=== PATIENT | female | born 2000 | race Caucasian/White ===

== ENCOUNTER 2024-08-04 19:39 | Emergency (ER) | payer SELFPAY ==
[~2024-08-04] VITALS: Ht 170.2 cm; Wt 60.2 kg
[2024-08-04 19:49] VITALS: BP 138/102; PULSE 133; O2SAT 99
--- NOTE | 2024-08-04 21:09 | Physician Documentation ---
History of Present Illness ~ Chief Complaint: Rash Stated Complaint: MRSA Time Seen by MD: 20:20 HPI Patient is seen today with complaints of skin rash that is been present for a while. Patient states he has even taken oral antibiotics for without any significant improvement. Patient states the lesions are very itchy and she does pick at them. Patient also complains of some joint pain in her hips but denies any injury. Patient has no new or other concern or complaint at this time. Medication Reconciliation Allergies: Coded Allergies: amoxicillin (Verified Allergy, Intermediate, rashes, 08/04/24) Scheduled Mupirocin* (Bactroban*), 1 APPLIC TOP Q12H Review of Systems Constitutional: Denies: chills, fever, weakness Eyes: Denies: pain, blurred vision ENT: Denies: ear pain, nose pain, throat pain, mouth pain Respiratory: Denies: cough, shortness of breath Cardiovascular: Denies: chest pain, palpitations Gastrointestinal: Denies: abdominal pain, nausea, vomiting Genitourinary: Denies: burning, dysuria Female Genitalia: Denies: vaginal discharge, pelvic pain Neurological: Denies: headache, dizziness Musculoskeletal: Denies: pain, swelling Integumentary: Denies: rash, lesions Allergic/Immunologic: Denies: hives, itching Hematologic/Lymphatic: Denies: no symptoms reported Psychiatric: Denies: depression, anxiety Physical Exam Vital Signs: Temperature: 98.3, Source: Oral, Heart Rate: 133, Respiratory Rate: 24, BP: 138/102, Pulse Oximetry: 99, Weight: 60.200 Physical Exam General: Awake and Alert, no acute distress. HEENT: Conjunctiva pink, Sclera clear, Mucus Membranes moist. Neck: Supple without masses and tenderness. Resp: Unlabored. Lungs clear to auscultation bilaterally. Heart: Regular Rate and rhythm, normal S1 and S2 without murmur, rub or gallop. Abdomen: Soft and non tender no organomegaly Musculoskeletal: Patient has full range of motion of spine in all planes of motion. Patient has decreased range of motion of right hip due to pain. Patient is neurovascularly intact distally. Motor function intact distally. Extremities: No cyanosis,clubbing or edema. 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 They are present on her left forearm and left upper arm as well as right arm. I do not appreciate any significant lesions on her back or out of reach from her finger nails or of her lower extremities. Progress Results/Orders Results/Orders Vital Signs 08/04/24 19:49 Temp 98.3 Pulse 133 Resp 24 B/P (MAP) 138/102 Pulse Ox 99 Medical Decision Making Findings Patient is seen today with complaints of skin rash that is been present for a while. Patient states he has even taken oral antibiotics for without any significant improvement. Patient states the lesions are very itchy and she does pick at them. Patient also complains of some joint pain in her hips but denies any injury. Patient has no new or other concern or complaint at this time. Prescription of mupirocin ointment sent to patient's pharmacy. Patient will apply twice a day for two weeks and will follow up with primary care if no better after that time. Return to ED with any worsening, concerning or changing symptoms. 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 Patient will apply twice a day for two weeks and will follow up with primary care if no briseida r after that time. Return to ED with any worsening, concerning or changing symptoms. Prescription of meloxicam 15 mg one tab by mouth once a day for 30 days sent to patient's pharmacy for treatment of joint pain. Referrals: NO PRIMARY CARE PROVIDER (PCP) Prescriptions Meloxicam (Meloxicam) 15 Mg Tablet 1 TAB PO DAILY for 30 Days, #30 TAB 0 Refills Prov: NARCISA SIMMONS 08/04/24 Mupirocin* (Bactroban*) 22 Gm Tube 1 APPLIC TOP Q12H for 14 Days, #22 GM apply to affected area(s) Prov: NARCISA SIMMONS 08/04/24 Signature Scribe Signature: No scribe Attestation: No scribe NARCISA SIMMONS August 04, 2024 21:09
[2024-08-04] MEDS ORDERED: MUPI22OI30 TOP (21:16)
[2024-08-04 21:35] VITALS: RESP 18
[2024-08-04] MEDS: ketorolac trometh 30MG/ML vial 30 MG/ML VIAL IM STA (21:35)
[2024-08-04 21:36] VITALS: TEMP 98.3
[2024-08-04] MEDS ORDERED: MELO-102 PO (21:39)
== END 2024-08-04 22:39 | disposition home or self-care (01) ==
LOC: ER 19:40
DX: L98.9 Disorder of the skin and subcutaneous tissue, unspecified (principal); R21 Rash and other nonspecific skin eruption; Z88.1 Allergy status to other antibiotic agents; Z79.899 Other long term (current) drug therapy
CPT/HCPCS: 96372; 99283; J1885